=== PATIENT | male | born 1990 | race Two or more races ===

== ENCOUNTER 2023-12-31 08:09 | Emergency (ER) | payer MEDICAID, OTHER ==
[~2023-12-31] VITALS: Ht 167.6 cm; Wt 109.0 kg
[2023-12-31] MEDS ORDERED: ONDANSETRON HCL 4 MG/2 ML VIAL IM ONE (08:45)
[2023-12-31] MEDS ORDERED: HYDROmorphone HCL 2 MG/ML VL/or syr IM ONE (08:45)
[2023-12-31] MEDS: ONDANSETRON HCL 4 MG/2 ML VIAL IV ONE (08:55)
[2023-12-31] MEDS: HYDROmorphone HCL 2 MG/ML VL/or syr IV ONE (08:56)
[2023-12-31] MEDS: HYDROcodone-ACET 10/325MG TAB PO ONE (10:31)
[2023-12-31] MEDS: ETOMIDATE (2MG/ML) 20ML VIAL IV ONE (12:02)
[2023-12-31 12:12] VITALS: BP 158/98; PULSE 93; RESP 16; TEMP 97.9; O2SAT 98
[2023-12-31] MEDS ORDERED: IBU600T PO (12:19)
== END 2023-12-31 13:04 | disposition home or self-care (01) ==
LOC: ER 08:12
DX: S52.202A Unspecified fracture of shaft of left ulna, initial encounter for closed fracture (principal); S52.502A Unspecified fracture of the lower end of left radius, initial encounter for closed fracture; V43.52XA Car driver injured in collision with other type car in traffic accident, initial encounter; Y93.89 Activity, other specified; Y92.488 Other paved roadways as the place of occurrence of the external cause; Y99.8 Other external cause status
CPT/HCPCS: 23650; 73030; 73090; 73110; 73130; 96374; 96375; 99152; 99285; J1170; J2405